=== PATIENT | female | born 1990 | race Caucasian/White ===

== ENCOUNTER 2018-03-21 17:32 | Emergency (ER) | END 2018-03-21 19:16 | disposition home or self-care (01) ==

== ENCOUNTER 2018-12-05 10:36 | Inpatient (IN) | payer OTHER ==
[~2018-12-05] VITALS: Ht 160 cm; Wt 68.2 kg
[~2018-12-05 10:36] MED LIST: HYDR-3498 PO; IBUP-1542 PO; NAPR-985 PO; NO NEW MEDS
[2018-12-05 11:32] VITALS: Ht 160 cm; Wt 68.2 kg
[2018-12-05 11:33] VITALS: BP 110/68; PULSE 65
[2018-12-05] MEDS ORDERED: PNV11TAB PO (11:40)
[2018-12-05] MEDS ORDERED: CARBOPROST 250 MCG INJ IM PRN (14:00)
[2018-12-05] MEDS ORDERED: OXYTOCIN 30 UNITS/LR 500 ML IV PRN (14:00)
[2018-12-05] MEDS ORDERED: OXYTOCIN 30 UNITS/LR 500 ML IV SCH (14:00)
[2018-12-05] MEDS ORDERED: LIDOCAINE 1% (MPF) 30 ML INJ INJ PRN (14:00)
[2018-12-05] MEDS ORDERED: BUTORPHANOL 2 MG INJ IV PRN (14:00)
[2018-12-05] MEDS ORDERED: METHYLERGONOVINE 0.2 MG INJ IM PRN (14:00)
[2018-12-05] MEDS ORDERED: BUTORPHANOL 1 MG INJ IV PRN (14:00)
[2018-12-05] MEDS ORDERED: MISOPROSTOL 200 MCG TAB PR PRN (14:00)
[2018-12-05] MEDS: LACTATED RINGER'S 1,000 ML IV SCH ×2 (16:40→21:46)
[2018-12-05] MEDS ORDERED: AMPICILLIN 2 GM/NS (PMX) 100 ML ONE (17:16)
[2018-12-05] MEDS ORDERED: AMPICILLIN 2 GM/NS (PMX) 100 ML IVPB ONE (17:30)
[2018-12-05] MEDS: AMPICILLIN 1 GM/NS (PMX) 50 ML IVPB SCH (21:42)
--- NOTE | 2018-12-05 21:55 | PREAC ---
Date/Time of Note Date/Time of Note DATE: 12/05/18 TIME: 21:54 Anesthesia Eval and Record Evaluation Time Pre-Procedure Interview DATE: 12/05/18 TIME: 21:54 Age 28 Sex female NPO: 8 hrs Preoperative diagnosis iup at term Planned procedure labor epidural Past Medical History Past Medical History: None Surgery & Anesthesia Issues No known issue Meds Anticoagulation: No Beta Karolina within 24 hr: No Reason Beta Karolina not given: Pt. not on B-Karolina Active Scripts Naproxen* (Naprosyn*) 500 Mg Tablet, 500 MG PO BID PRN for PAIN AND/OR INFLAMMATION, #30 TAB Prov:OH ROSEN PA-C 03/21/18 Ibuprofen* (Motrin*) 600 Mg Tab, 600 MG PO Q6, #20 TAB Prov:NETTE YEPEZ NP 11/11/15 Ibuprofen* (Motrin*) 600 Mg Tab, 600 MG PO Q6, #20 TAB Prov:LIBERTY WILEY MD 10/23/15 Hydrocodone Bit-Acetaminophen* ([place]*) 5-325 Mg Tab, 1 TAB PO Q6 PRN for PAIN, #14 TAB Prov:LIBERTY WILEY MD 10/23/15 Reported Medications [id number] ( 19) 1 Each Tablet, 1 TAB PO DAILY, TAB 12/05/18 [No New Meds] No Conflict Check 12/19/11 Current Medications Lactated Ringer's 1,000 ml @ 125 mls/hr Q8H IV Last administered on 12/05/18at 16:40; Admin Dose 125 MLS/HR; Start 12/05/18 at 13:58 Butorphanol Tartrate (Stadol) 1 mg Q2H PRN IV .PAIN; Start 12/05/18 at 14:00 Butorphanol Tartrate (Stadol) 2 mg Q2H PRN IV .PAIN; Start 12/05/18 at 14:00 Lidocaine (Xylocaine 1% (Mpf)) 30 ml ONCE PRN INJ .EPISIOTOMY; Start 12/05/18 at 14:00 Oxytocin/Lactated Ringer's 500 ml @ 500 mls/hr ONCE POST IV ; Start 12/05/18 at 14:00 Oxytocin/Lactated Ringer's 500 ml @ 125 mls/hr POST IV ; Start 12/05/18 at 14:00 Oxytocin/Lactated Ringer's 500 ml @ 0 mls/hr ONCE PRN IV .VAGINAL BLEEDING; Start 12/05/18 at 14:00 Methylergonovine Maleate (Methergine) 0.2 mg ONCE PRN IM .VAGINAL BLEEDING; Start 12/05/18 at 14:00 Carboprost Tromethamine (Hemabate) 250 mcg ONCE PRN IM .VAGINAL BLEEDING; Start 12/05/18 at 14:00 Misoprostol (Cytotec) 1,000 mcg ONCE PRN DE .VAGINAL BLEEDING; Start 12/05/18 at 14:00 Ampicillin 50 ml @ 100 mls/hr Q4 IVPB Last administered on 12/05/18at 21:42; Admin Dose 100 MLS/HR; Start 12/05/18 at 21:00 Meds reviewed: Yes Allergies Coded Allergies: No Known Allergy (Verified , 12/19/11) Allergies Reviewed: Yes Labs/Studies Labs Reviewed: Reviewed by anesthesiologist Result Diagram: 12/05/18 1640 Laboratory Tests 12/05/18 16:40 Blood Bank Test 12/05/18 16:40 Antibody Screen NEGATIVE Blood Type O POSITIVE Rh Immune Globulin Candidate NO test: Positive Pre-procedure Exam Last vitals Vital Signs Date Temp Pulse Resp B/P (MAP) Pulse Ox O2 O2 Flow FiO2 Time Delivery Rate 12/05/18 98.0 65 110/68 11:33 (82) Airway: Adequate mouth opening, Adequate thyromental dist Mallampati: Mallampati I Teeth: Normal Lung: Normal Heart: Normal ASA Physical Status ASA physical status: 2 Emergency: None Planned Anesthetic Neuraxial: Epidural Planned Pain Management Parenteral pain med Pre-operative Attestations Prior to commencing anesthesia and surgery, the patient was re-evaluated, there was verification of: *The patient's identity *The results of appropriate recent lab work and preoperative vital signs *The above evaluation not changing prior to induction *Anesthetic plan, risk benefits, alternative and complications discussed with patient/family; questions answered; patient/family understands, accepts and wishes to proceed. REHANA ZARCO Dec 05, 2018 21:55
[2018-12-05] MEDS ORDERED: ONDANSETRON 4 MG INJ IV PRN (22:00)
[2018-12-05] MEDS ORDERED: FENTAnyl 2MCG/ML-ROPIV 0.2% 100 ML BAG EPI SCH (22:00)
[2018-12-05] MEDS ORDERED: NALOXONE (0.4 MG/ML) INJ IV PRN (22:00)
[2018-12-05] MEDS ORDERED: DIPHENHYDRAMINE 50 MG INJ IV PRN (22:00)
[2018-12-06] MEDS: LACTATED RINGER'S 1,000 ML IV SCH (00:31)
[2018-12-06] MEDS: AMPICILLIN 1 GM/NS (PMX) 50 ML IVPB SCH (01:00)
[2018-12-06] MEDS: OXYTOCIN 30 UNITS/LR 500 ML IV SCH ×2 (02:53→05:51)
[2018-12-06] MEDS ORDERED: MAGNESIUM HYDROXIDE 30ML CUP PO PRN (03:00)
--- NOTE | 2018-12-06 03:06 | HP ---
Date/Time of Note Date/Time of Note DATE: 12/06/18 TIME: 03:01 OB - History Hx of Present Free Text/Dictation 28-year-old 1 with single intrauterine at 38 weeks with a LARRY of 12/19/2018 complaining of leakage of fluid. She states good movement. She denies nausea, vomiting, shortness of breath, chest pain, headache, visual changes, vaginal bleeding. Chief Complaint: Leakage of fluid Estimated Due Date: Dec 19, 2018 : 1 Care: Good Care Ultrasounds: Normal mid trimester US Obstetrical Complications: None Medical Complications: None Past Family/Social History * Past Medical, Surgical, Family and Obstetric Histories reviewed from chart. OB Admission Exam Vital Signs Vital Signs Vital Signs Date Temp Pulse Resp B/P (MAP) Pulse Ox O2 O2 Flow FiO2 Time Delivery Rate 12/05/18 98.0 65 110/68 11:33 (82) Physical Exam HEENT: WNL Heart: Rhythm Normal Lungs: Clear Abdomen: WNL Extremities: Normal Cervical Dilatation: 1cm Effacement: 75% Station: -3 Membranes: Ruptured Amniotic Fluid: Clear Heart Rate: 140's Accelerations: Accelerations Present Decelerations: No Decelerations Varibility: Moderate Contractions on Admission: >10 Minutes Apart Last 72 hours Lab Results CBC & BMP 12/05/18 16:40 OB Assessment/Plan Other plan: 28-year-old 1 with single intrauterine at 38 weeks with rupture of membrane - FHR: No sign of metabolic acidosis- Category I - Continuous EFM, toco - CBC, blood type and screen - Analgesia options with R/B/A discussed in detail with patient - Epidural per patient request - Please see the orders - O+/Rubella: Immune - GBS: Positive-on ampicillin Admission, procedures, expectations, risks and possible complications have been discussed in detail with the patient. Risk of vaginal delivery including but not limited to bleeding, infection, cervical laceration, placental retention, injury to fetus, blood transfusion, blood transfusion related infection, risk of anesthesia, adhesion, cervical laceration, episiotomy/laceration, possible delivery with risk of bleeding, infection, injury to other organs (bowel, bladder, ureter, vessels, nerves), injury to fetus, blood transfusion, blood transfusion related infection, risk of anesthesia, scar and hernia formation, needs for future , removal of uterus or any other indicated surgery discussed with the patient. She expressed understanding and repeats the risks. All of her questions were answered. She signed the informed consent. PHYSICIAN'S VERIFICATION OF INFORMED CONSENT The patient was counseled regarding the procedure, its indications, risks, potential complications and alternatives and any questions were answered. Consent was obtained. PLANNED PROCEDURE/TREATMENT: Vaginal delivery, episiotomy, repair of laceration possible delivery NERY LANG Dec 06, 2018 03:05
--- NOTE | 2018-12-06 03:10 | LDN ---
Date/Time of Note Date/Time of Note DATE: 12/06/18 TIME: 03:06 Delivery Summary 28-year-old 1 with single intrauterine at 38 weeks delivered a viable female over median episiotomy with third-degree laceration. Nose and mouth suctioned. Rest of body delivered. Cord clamped and cut after stopping pulsation. Placenta delivered 40 minutes after delivery of the baby intact and spontaneously. Laceration and episiotomy repaired with 3-0 and 2-0 Vicryl. Patient tolerated procedure well. Weight 7 pounds 12 ounces Height 20 inches 9 at 1 minutes and 9 at 5 EBL 350 ml Weeks of Gestation 38 weeks Placenta Delivered: Spontaneously Meconium: none Episiotomy: Yes Estimated blood loss: 350 Sponge & Needle done & correct: Yes All needle counts correct: Yes Any foreign bodies felt in the: No Mother & Baby Disposition Disposition Mom & Baby to Maternity; Good: Yes NERY LANG Dec 06, 2018 03:10
[2018-12-06] MEDS ORDERED: LACTATED RINGER'S 1,000 ML IV* SCH (04:49)
[2018-12-06] MEDS ORDERED: DEXTROSE 5%-LR 1,000 ML IV SCH (04:49)
[2018-12-06 04:50] VITALS: BP 127/70; PULSE 71; RESP 19
[2018-12-06] MEDS ORDERED: MISOPROSTOL 200 MCG TAB PR PRN (05:00)
[2018-12-06] MEDS ORDERED: OXYCODONE/ASPIRIN (4.88/325) TAB PO PRN (05:00)
[2018-12-06] MEDS ORDERED: SENNA/DOCUSATE NA (8.6MG/50MG) TAB PO PRN (05:00)
[2018-12-06] MEDS ORDERED: ACETAMINOPHEN 325 MG TAB PO PRN (05:00)
[2018-12-06] MEDS ORDERED: ZOLPIDEM 5 MG TAB PO PRN (05:00)
[2018-12-06] MEDS ORDERED: CARBOPROST 250 MCG INJ IM PRN (05:00)
[2018-12-06] MEDS ORDERED: METHYLERGONOVINE 0.2 MG INJ IM PRN (05:00)
[2018-12-06] MEDS ORDERED: OXYTOCIN 30 UNITS/LR 500 ML IV PRN (05:00)
[2018-12-06] MEDS ORDERED: DIPHENHYDRAMINE 50 MG INJ IV PRN (05:00)
[2018-12-06] MEDS ORDERED: ONDANSETRON 4 MG INJ IV PRN (05:00)
[2018-12-06] MEDS ORDERED: DIBUCAINE 1% 30 GM OINT TOP PRN (05:00)
[2018-12-06] MEDS: BENZOCAINE 20% 56 ML SPRAY TOP PRN (05:49)
[2018-12-06] MEDS: WITCH HAZEL/GLYCERIN PAD PR PRN (05:49)
[2018-12-06 05:50] VITALS: BP 121/74; PULSE 66; RESP 19
[2018-12-06] MEDS: IBUPROFEN 600 MG TAB PO SCH ×2 (05:50→06:00)
[2018-12-06 08:00] VITALS: BP 118/76; PULSE 68; RESP 16
[2018-12-06] MEDS: IBUPROFEN LIQUID (PED) 20 MG/ML CUP PO SCH ×4 (09:00→23:42)
[2018-12-06] MEDS ORDERED: ACETAMINOPHEN 650MG/20.3ML CUP PO PRN (09:00)
[2018-12-06] MEDS ORDERED: ACETAMINOPHEN 650MG/20.3ML CUP PO SCH (09:00)
[2018-12-06] MEDS: LANOLIN HPA 1 PKT TOP PRN (09:02)
[2018-12-06 15:55] VITALS: BP 100/55; PULSE 66; RESP 18
[2018-12-06 19:30] VITALS: BP 99/51; PULSE 74; RESP 19
[2018-12-07 03:30] VITALS: BP 96/50; PULSE 67; RESP 19
[2018-12-07] MEDS: IBUPROFEN LIQUID (PED) 20 MG/ML CUP PO SCH ×3 (05:48→17:52)
[2018-12-07 07:40] VITALS: BP 102/57; PULSE 68; RESP 16
--- NOTE | 2018-12-07 08:59 | PAC ---
Date/Time of Note Date/Time of Note DATE: 12/07/18 TIME: 08:59 Post-Anesthesia Notes Post-Anesthesia Note Last documented vital signs Vital Signs Date Temp Pulse Resp B/P (MAP) Pulse Ox O2 O2 Flow FiO2 Time Delivery Rate 12/07/18 98.7 67 19 96/50 (65) Room Air 08:30 Activity: WNL Respiratory function: WNL Cardiovascular function: WNL Mental status: Baseline Pain reasonably controlled: Yes Hydration appropriate: Yes Nausea/Vomiting absent: Yes REHANA ZARCO Dec 07, 2018 08:59
[2018-12-07] MEDS: FERROUS SULFATE 60 MG/ML 5ML CUP PO SCH ×2 (10:28→21:38)
--- NOTE | 2018-12-07 10:42 | DS ---
Date/Time of Note Date/Time of Note DATE: 12/07/18 TIME: 10:41 Discharge Summary Admission/Discharge Info Admit Date/Time Dec 05, 2018 at 14:00 Discharge Date/Time Discharge Diagnosis term Patient Condition: Stable Hospital Course unremarkable Home Meds Active Scripts Naproxen* (Naprosyn*) 500 Mg Tablet, 500 MG PO BID PRN for PAIN AND/OR INFLAMMATION, #30 TAB Prov:OH ROSEN PA-C 03/21/18 Ibuprofen* (Motrin*) 600 Mg Tab, 600 MG PO Q6, #20 TAB Prov:NETTE YEPEZ NP 11/11/15 Ibuprofen* (Motrin*) 600 Mg Tab, 600 MG PO Q6, #20 TAB Prov:LIBERTY WILEY MD 10/23/15 Hydrocodone Bit-Acetaminophen* ([place]*) 5-325 Mg Tab, 1 TAB PO Q6 PRN for PAIN, #14 TAB Prov:LIBERTY WILEY MD 10/23/15 Reported Medications [id number] ( 19) 1 Each Tablet, 1 TAB PO DAILY, TAB 12/05/18 [No New Meds] No Conflict Check 12/19/11 Primary Care Provider Not On Staff Doctor Pending Labs Laboratory Tests Test 12/07/18 07:20 White Blood Count 7.2 10^3/ul (4.8-10.8) Red Blood Count 2.55 10^6/ul (4.20-5.40) Hemoglobin 6.6 g/dl (12.0-16.0) Hematocrit 21.3 % (37.0-47.0) Mean Corpuscular Volume 83.5 fl (82.0-101.0) Mean Corpuscular Hemoglobin 25.9 pg (29.0-33.0) Mean Corpuscular Hemoglobin Concent 31.0 g/dl (32.0-37.0) Red Cell Distribution Width 18.0 % (11.5-14.5) Platelet Count 136 10^3/UL (140-415) Mean Platelet Volume 11.1 fl (7.4-10.4) Immature Granulocytes % 0.400 % (0.001-0.429) Neutrophils % % (39.0-77.0) Segmented Neutrophils % (Manual) 65 % (39-77) Band Neutrophils % (Manual) 2 % (0-4) Lymphocytes % % (15.0-51.0) Lymphocytes % (Manual) 31 % (15-51) Monocytes % % (0.0-11.0) Monocytes % (Manual) 2 % (0-11) Eosinophils % % (0.0-7.0) Eosinophils % (Manual) 1 % (0-7) Basophils % % (0.0-2.0) Basophils % (Manual) 1 % (0-2) Nucleated Red Blood Cells % 0.0 /100WBC (0.0-0.0) Immature Granulocytes # 0.030 10^3/ul (0.0-0.031) Neutrophils # 10^3/ul (1.6-7.5) Neutrophils # (Manual) 4.7 10^3/ul (1.6-7.5) Band Neutrophils # 0.1 10^3/ul (0.0-0.6) Lymphocytes (Manual) 2.2 10^3/ul (0.8-2.9) Lymphocytes # 10^3/ul (0.8-2.9) Monocytes # 10^3/ul (0.3-0.9) Monocytes # (Manual) 0.1 10^3/ul (0.3-0.9) Eosinophils # 10^3/ul (0.0-0.5) Basophils # 10^3/ul (0.0-0.1) Basophils # (Manual) 0.0 10^3/ul (0.0-0.0) Nucleated Red Blood Cells # 10^3/ul (0.0-0.0) Platelet Estimate DECREASED Giant Platelets 1 % (0-0) Polychromasia 1+ (0-0) Poikilocytosis 1+ (0-0) Anisocytosis 2+ (0-0) Microcytosis 2+ (0-0) Macrocytosis (0-0) DYLAN CAPPS MD Dec 07, 2018 10:42
--- NOTE | 2018-12-07 11:44 | QN ---
Documentation Comment PPD#1 is stable No VB +BM +voids VS stable Gen NA Abd soft NT ND Genitalia No blood at perineum __>discharge plan tomorrow --->Ambulation ROBERTO CASAS M.D. Dec 07, 2018 11:44
[2018-12-07 16:01] VITALS: BP 98/59; PULSE 66; RESP 18
[2018-12-07 21:01] VITALS: BP 104/59; PULSE 71; RESP 18
[2018-12-08] MEDS: IBUPROFEN LIQUID (PED) 20 MG/ML CUP PO SCH ×3 (00:17→13:53)
[2018-12-08] MEDS: IBUPROFEN 600 MG TAB PO SCH ×2 (00:58→06:00)
[2018-12-08 04:00] VITALS: BP 99/50; PULSE 17; RESP 17
--- NOTE | 2018-12-08 08:11 | QN ---
Documentation Comment DOING WELL VSS D/C HOME DYLAN CAPPS MD Dec 08, 2018 08:11
[2018-12-08 08:30] VITALS: BP 104/57; PULSE 58; RESP 17
[2018-12-08] MEDS ORDERED: MEASLES,MUMPS,RUBELLA VACCINE INJ SC* ONE (09:00)
[2018-12-08] MEDS ORDERED: DIPHTH/TET/ACEL PERTUSS (ADULT) 0.5 ML VIAL IM* ONE (09:00)
[2018-12-08] MEDS: FERROUS SULFATE 60 MG/ML 5ML CUP PO SCH (09:41)
[2018-12-08] MEDS: LANOLIN HPA 1 PKT TOP PRN (09:41)
[2018-12-08] MEDS: BENZOCAINE 20% 56 ML SPRAY TOP PRN (09:42)
[2018-12-08] MEDS: WITCH HAZEL/GLYCERIN PAD PR PRN (09:42)
== END 2018-12-08 16:40 | disposition home or self-care (01) | DRG 807 ==
LOC: OBT 10:36 → L-D 10:37 → OBT 14:00 → L-D 14:00 → PP1 12-06 04:45
PROVIDERS: ADMIT Obstetrics & Gynecology; ATTEND Obstetrics & Gynecology
PROC: 10E0XZZ Delivery of Products of Conception, External Approach (ICD-10-PCS; principal; 2018-12-06)
PROC: 0W8NXZZ Division of Female Perineum, External Approach (ICD-10-PCS; 2018-12-06)
DX: O80 Encounter for full-term uncomplicated delivery (principal); Z37.0 Single live birth; Z3A.38 38 weeks gestation of pregnancy
CPT/HCPCS: 62319; 74018; 76818; 85025; 85610; 85730; 86592; 86850; 86900; 86901; 87340; A4310; G0463; J0290; J2210; J2405; J2590; J3010; J7120; J7121